=== PATIENT | male | born 1945 | race Caucasian/White ===

== ENCOUNTER 2022-03-23 08:00 | Inpatient (IN) | payer OTHER ==
[~2022-03-23] VITALS: Ht 177.8 cm; Wt 134.3 kg
[~2022-03-23 08:00] MED LIST: CEFADROXIL500 MG PO; FENOFIBRATE145 MG PO; LISINOPRIL20 MG PO; PERCOCET 5/3251 TAB PO; XARELTO10 MG PO
[2022-03-23] MEDS ORDERED: GLUMETZA500 MG PO (09:22)
[2022-03-23] MEDS ORDERED: LISINOP PO (09:22)
[2022-03-23] MEDS ORDERED: HYDRALAZINE HC100 MG PO (09:23)
[2022-03-23] MEDS ORDERED: CARVEDILOL25 M1 PO (09:23)
[2022-03-23] MEDS ORDERED: KAPVAY0.1 MG PO (09:24)
[2022-03-30] MEDS ORDERED: OXYC1TAB9 PO (06:40)
[2022-03-30] MEDS ORDERED: BACTRIM DS TAB1 EACH PO (06:40)
[2022-03-30] MEDS ORDERED: INTEGRA PLUS C1 EACH PO (06:40)
[2022-03-30] MEDS ORDERED: XARELTO10 MG PO (06:40)
== END 2022-03-30 15:16 | DRG 470 ==
LOC: SURH 03-28 05:25 → O/R 03-28 05:25 → SURG 03-28 08:00 → SURH 03-28 10:28 → SURG 03-28 10:45 → SURH 03-30 15:16
PROVIDERS: ADMIT Orthopaedic Surgery Sports Medicine; ATTEND Orthopaedic Surgery Sports Medicine
PROC: 0SRD0J9 Replacement of Left Knee Joint with Synthetic Substitute, Cemented, Open Approach (ICD-10-PCS; principal; 2022-03-28 10:45)
DX: M17.12 Unilateral primary osteoarthritis, left knee (principal); I10 Essential (primary) hypertension; R73.03 Prediabetes; Z96.652 Presence of left artificial knee joint; Z20.822 Contact with and (suspected) exposure to COVID-19